=== PATIENT | female | born 1940 ===

== ENCOUNTER 2017-11-04 06:52 | Day surgery (SDC) | payer MEDICARE ==
[2017-11-04 07:43] VITALS: BMI 24.7
--- NOTE | 2017-11-04 08:29 | CP.SDSHP ---
Same Day Surgery H & P - History Proposed Procedure: Colonoscopy Pre-Op Diagnosis: Change in bowel habits - Previous Medical/Surgical History Cardiac: Hypertension Endocrine/Metabolic: Thyroid Disease Previous Surgical History: None - Allergies Allergies: Allergies aspirin Allergy (Verified 11/04/17 07:45) RASH ibuprofen [From Advil] Allergy (Verified 11/04/17 07:44) RASH - Physical Exam General Appearance: WD WN female in NAD Vital Signs: Vital Signs 11/04/17 07:51 Temperature 97.1 F L Pulse Rate 66 Respiratory 17 Rate Blood Pressure 185/59 H O2 Sat by Pulse 97 Oximetry Mental Status: Alert & Oriented x3 Neuro: WNL Heart: WNL Lungs: WNL GI: WNL - {Optional Preform as Required} Abdomen: WNL - Impression Impression: Change in bowel habits Pt. Evaluated Today:Candidate for Anesthesia & Procedure: Yes - Date & Time Date: 11/04/17 Time: 08:29 Short Stay Discharge - Short Stay Discharge Admitting Diagnosis/Reason for Visit: CHANGE IN BOWEL HABITS Disposition: HOME/ ROUTINE
[2017-11-04] MEDS ORDERED: Propofol 10 mg/ml Inj (20 ML) ONE (09:00)
[2017-11-04] MEDS ORDERED: Lactated Ringer's 1,000 ML IV ONE ×2 (09:00)
[2017-11-04 10:17] VITALS: PULSE 56; O2SAT 98
[2017-11-04 10:35] VITALS: BP 145/63; RESP 15; TEMP 97.2
== END 2017-11-04 10:30 | disposition home or self-care (01) ==
LOC: C.ENDO 06:52
PROVIDERS: ATTEND Internal Medicine Gastroenterology
DX: R19.4 Change in bowel habit (principal); I10 Essential (primary) hypertension; Z88.6 Allergy status to analgesic agent; E07.9 Disorder of thyroid, unspecified; K57.30 Diverticulosis of large intestine without perforation or abscess without bleeding; K64.8 Other hemorrhoids
CPT/HCPCS: 45378; J2704; J7120